=== PATIENT | female | born 1965 ===

== ENCOUNTER 2018-08-08 08:57 | Outpatient (CLI) | payer SELFPAY | END 2018-08-08 08:58 | disposition home or self-care (01) | LOC: C.LAB 08:57 | DX: R73.01 Impaired fasting glucose (principal); E78.00 Pure hypercholesterolemia, unspecified; E03.9 Hypothyroidism, unspecified; R12 Heartburn; R31.29 Other microscopic hematuria ==

== ENCOUNTER 2018-08-09 15:21 | Outpatient (CLI) | payer SELFPAY | END 2018-08-09 15:22 | disposition home or self-care (01) | LOC: C.USIC 15:21 | DX: R31.29 Other microscopic hematuria (principal) ==

== ENCOUNTER 2018-08-15 03:17 | Emergency (ER) | payer SELFPAY ==
--- NOTE | 2018-08-15 03:23 | C.PDOC ---
History Of Present Illness Patient presents to the ER with sudden onset of sharp stabbing right flank pain that began 3 hours ago. Denies fever or chills. Time Seen by Provider: 08/15/18 03:22 History Per: Patient History/Exam Limitations: no limitations Onset/Duration Of Symptoms: Hrs (3) Current Symptoms Are (Timing): Still Present Severity: Severe Pain Scale Rating Of: 7 Location Of Pain/Discomfort: Other (Right flank pain) Quality Of Discomfort: Sharp, Stabbing Associated Symptoms: denies: Fever, Chills Exacerbating Factors: None Alleviating Factors: None Recent travel outside of the [place]: No Abnormal Vaginal Bleeding: No Past Medical History Reviewed: Historical Data, Nursing Documentation, Vital Signs Family History: States: No Known Family Hx Review Of Systems Constitutional: Negative for: Fever, Chills Cardiovascular: Negative for: Chest Pain, Palpitations Respiratory: Negative for: Cough, Shortness of Breath Gastrointestinal: Negative for: Nausea, Vomiting Musculoskeletal: Positive for: Other (Right flank pain) Neurological: Negative for: Weakness, Numbness Physical Exam - Physical Exam Appears: Non-toxic Skin: Warm, Dry Head: Normacephalic Oral Mucosa: Moist Chest: Symmetrical, No Tenderness Cardiovascular: Rhythm Regular Respiratory: No Rales, No Rhonchi, No Wheezing Gastrointestinal/Abdominal: Soft, No Tenderness Back: CVA Tenderness (right), Other (Right flank tenderness) Neurological/Psych: Oriented x3 ED Course And Treatment - Laboratory Results Result Diagrams: 08/15/18 03:46 08/15/18 03:46 O2 Sat by Pulse Oximetry: 99 Pulse Ox Interpretation: Normal Reevaluation Time: 06:41 Reassessment Condition: Improved Disposition Counseled Patient/Family Regarding: Studies Performed, Diagnosis, Need For Followup - Disposition Referrals: Black Loredo Jr., MD [Staff Provider] - Disposition: HOME/ ROUTINE Disposition Time: 03:23 Condition: FAIR Additional Instructions: Por favor regrese si los sntomas recurren. Prescriptions: Ondansetron ODT [Zofran ODT] 1 odt PO BID PRN #6 odt PRN Reason: Nausea/Vomiting traMADol [Ultram] 50 mg PO TID PRN #15 tab PRN Reason: Pain, Severe (8-10) Instructions: Kidney Stones (DC), Renal Colic (DC), How to Strain Your Urine, Kidney Stone Diet Print Language: [place] - Clinical Impression Clinical Impression: Renal colic on right side, Kidney stone on right side - Scribe Statement The provider has reviewed the documentation as recorded by the Scribe Toro Driver All medical record entries made by the Scribe were at my direction and personally dictated by me. I have reviewed the chart and agree that the record accurately reflects my personal performance of the history, physical exam, medi philip decision making, and the department course for this patient. I have also personally directed, reviewed, and agree with the discharge instructions and disposition.
[2018-08-15] MEDS ORDERED: Sodium Chloride 0.9% 1,000 ML IV ONE ×2 (03:27→05:37)
[2018-08-15] MEDS ORDERED: Sodium Chloride 0.9% 1,000 ML ONE (03:27)
[2018-08-15 03:30] VITALS: RESP 16; O2SAT 99
[2018-08-15 03:51] LABS: BASO # 0.1 K/uL (0.0-0.2); EOS # 0.4 K/uL (0.0-0.7); EOS % 3.7 % (0.0-4.0); HEMOGLOBIN 13.7 g/dL (11.0-16.0); LYMPH # 4.7 K/uL (1.0-4.3); LYMPH % 43.8 % (20.0-40.0); MEAN CELL VOLUME 88.5 fL (81.0-99.0); MEAN CORPUSCULAR HEMOGLOBIN 29.1 pg (27.0-31.0); MEAN CORPUSCULAR HGB CONC 32.9 g/dL (33.0-37.0); MEAN PLATELET VOLUME 9.6 fL (7.2-11.7); MONO # 0.6 K/uL (0.0-0.8); MONO % 5.6 % (0.0-10.0); NEUT # 4.9 K/uL (1.8-7.0); NEUT % 45.9 % (50.0-75.0); NRBC % 0.1 % (0.0-2.0); RBC 4.71 Mil/uL (3.80-5.20); RED CELL DISTRIBUTION WIDTH 13.5 % (11.5-14.5); WHITE BLOOD COUNT 10.7 K/uL (4.8-10.8)
[2018-08-15 03:58] LABS: INR 0.9
[2018-08-15 04:01] LABS: ALB/GLOB RATIO 1.3 (1.0-2.1); ALBUMIN 4.5 g/dL (3.5-5.0); ALT/SGPT 17 U/L (9-52); AST/SGOT 29 U/L (14-36); BLOOD UREA NITROGEN 25 mg/dL (7-17); CALCIUM 9.2 mg/dl (8.6-10.4); GFR NON-AFRICAN AMERICAN > 60; LIPASE 97 U/L (23-300)
[2018-08-15 04:02] LABS: PROTHROMBIN TIME 9.7 SECONDS (9.7-12.2)
[2018-08-15 04:50] LABS: SQUAMOUS EPITHIAL 10 /hpf (0-5); URINE BACTERIA RARE (<OCC); URINE BILIRUBIN NEGATIVE (NEGATIVE); URINE BLOOD 2+ (NEGATIVE); URINE CLARITY Hazy (Clear); URINE COLOR Yellow (YELLOW); URINE GLUCOSE (UA) NORMAL (Normal); URINE HYALINE CAST 0-2 /lpf (0-2); URINE LEUKOCYTE ESTERASE 2+ Leu/uL (Negative); URINE PROTEIN NEGATIVE (NEGATIVE); URINE UROBILINOGEN NORMAL mg/dL (0.2-1.0)
[2018-08-15 05:55] VITALS: BP 130/70; PULSE 85; TEMP 98.7
--- NOTE | 2018-08-15 07:47 | CT ---
CT abdomen and pelvis HISTORY: Right flank pain. COMPARISON: None available. Technique: Multiple contiguous axial images were performed through the abdomen and pelvis without the use of intravenous contrast. Subsequently, sagittal and coronal reformatted images were obtained. This CT exam was performed using one or more of the following dose reduction techniques: Automated exposure control, adjustment of the mA and/or kV according to patient size, and/or use of iterative reconstruction technique. Findings: Scattered atelectasis at the lung bases. No pleural or pericardial effusion. Mildly enlarged liver. Gallbladder is preserved. Spleen is preserved. Adrenal glands are preserved. Pancreas is preserved. Upper abdominal bowel is preserved. Right kidney: Moderate right renal hydroureteronephrosis with perinephric fat stranding. 5 millimeter calculus in the distal right ureter. Left Kidney: Suggestion of a 1 millimeter nonobstructive calculus in the lower pole of the left kidney. Underdistended urinary bladder. Several calcified phleboliths in the pelvis. Heterogeneous uterus. Underdistended left hemicolon. Fecal retention in the right hemicolon. Appendix within normal limits. Few shotty para-aortic and inguinal lymph nodes. Few shotty mesenteric lymph nodes. Degenerative changes in the spine. Sclerosis of the right SI joint. Impression: Moderate right renal hydroureteronephrosis with perinephric fat stranding. 5 millimeter calculus in the distal right ureter. Additional findings as above. A preliminary report was generated at 5:27 a.m. on 08/15/[address] Maribel Marcano from [employer].
== END 2018-08-15 06:58 | disposition home or self-care (01) ==
LOC: C.ER 03:17
DX: N13.2 Hydronephrosis with renal and ureteral calculous obstruction (principal)
CPT/HCPCS: 74176; 80053; 81001; 83690; 84703; 85025; 85610; 85730; 96361; 96374; 96375; 99285; J1885; J2270; J2405; J7030

== ENCOUNTER 2018-10-12 08:52 | Outpatient (CLI) | payer SELFPAY | END 2018-10-12 08:53 | disposition home or self-care (01) | LOC: C.USIC 08:52 | DX: N20.0 Calculus of kidney (principal) ==